=== PATIENT | female | born 1995 | race Hispanic/Latino ===

== ENCOUNTER 2018-09-12 10:24 | Emergency (ER) | payer SELFPAY ==
--- OUTSIDE RECORDS SUMMARY | 2018-09-12 10:50 | XMS REPORT ---
:1995 [facility] Address [address] [place] [address] Dr. Islas [address] [place] [id number] Care Team Providers Name Role Phone Unavailable Unavailable Unavailable Problems This patient has no known problems. Allergies, Adverse Reactions, Alerts This patient has no known allergies or adverse reactions. Medications This patient has no known medications.
[2018-09-12 11:38] LABS: Absolute Lymphocytes (CBC) 2.3 K/uL (0.7-4.9); Absolute Monocytes 0.4 K/uL (0.1-1.3); Absolute Neutrophil 6.1 K/uL (1.8-8.0); Basophils % 0.4 % (0-1.3); Eosinophils % 0.6 % (0-4.4); Lymphocytes % 26.1 % (15.3-44.8); MPV 8.5 fL (7.6-11.3); Monocytes % 4.1 % (3.3-12.3); RBC Red Blood Cell Count 4.26 M/uL (3.86-4.86)
[2018-09-12 12:12] LABS: BUN Blood Urea Nitrogen 8 mg/dL (7-18); Bicarbonate 27 mmol/L (21-32); Glucose Level 83 mg/dL (74-106); HCG, Quantitative 8947 mIU/mL (1-3); Sodium Level 141 mmol/L (136-145)
[2018-09-12 12:18] LABS: Urine Blood 2+ (NEG); Urine Glucose NEGATIVE (NEG); Urine Protein NEGATIVE (NEG)
--- NOTE | 2018-09-12 13:06 | RAD REPORT ---
EXAM DESCRIPTION: US - Transvaginal OB - 09/12/2018 12:56 pm CLINICAL HISTORY: Abd cramping, ;Vaginal bleeding COMPARISON: No comparisons FINDINGS: A single gestational sac is seen within the uterus. The gestational sac is located slightl y inferior to the fundal region of the endometrium. The shape of the sac is somewhat oblong. No yolk sac or embryo detected. Mean sac diameter is 12 mm corresponding to 5 weeks 6 days gestational age. The maternal adnexa and ovaries are within normal limits. Normal Doppler blood flow was demonstrated to both ovaries. IMPRESSION: [place] shaped gestational sac is seen within the endometrium, somewhat inferior to the f undal region. No yolk sac or pole is seen. Blighted ovum or early IUP remain possibilities. Ect opic is also not completely excluded although felt to be less likely. Advise followup seria l HCG levels and follow-up transvaginal ultrasound 7-10 days.
--- NOTE | 2018-09-12 13:10 | EDPHYS ---
Physician Documentation [facility] Name: Danii Rivera Age: 22 yrs Sex: Female : 1995 Arrival Date: 09/12/2018 Time: 10:27 Bed 23 Private MD: ED Physician Fran Simmons HPI: 09/12 12:22 This 22 yrs old Female presents to ER via Ambulatory with complaints of 8 wks kb , Back Pain. 12:22 The patient presents to the emergency department with vaginal bleeding, that is light, kb low back pain. The estimated gestational age is 8 weeks. course: care: none, Leakage of Fluid: none appreciated, Ultrasound: the patient has not had an ultrasound, Risk/complications: no obvious risks or complications are appreciated. Previous pregnancies: in previous pregnancies patient has had. Associated signs and symptoms: Pertinent positives: vaginal bleeding, Pertinent negatives: abdominal pain, chest pain, diarrhea, dysuria, fever, frequency, nausea, ruptured membranes, seizure, shortness of breath, vaginal discharge, vomiting. The patient has not experienced similar symptoms in the past. The patient has not recently seen a physician. 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 - Social history:: Smoking status: Patient/guardian denies using tobacco. - Ebola Screening: : No symptoms or risks identified at this time. ROS: 12:17 Constitutional: Negative for fever, chills, and weight loss, Cardiovascular: Negative kb for chest pain, palpitations, and edema, Respiratory: Negative for shortness of breath, cough, wheezing, and pleuritic chest pain, Abdomen/GI: Negative for abdominal pain, nausea, vomiting, diarrhea, and constipation, Skin: Negative for injury, rash, and discoloration, Neuro: Negative for headache, weakness, numbness, tingling, and seizure. 12:17 Back: Positive for pain at rest, pain with movement, of the low back area. 12:17 : Positive for vaginal bleeding. Exam: 12:17 Constitutional: This is a well developed, well nourished patient who is awake, alert, kb and in no acute distress. Head/Face: Normocephalic, atraumatic. Neck: Trachea midline, no thyromegaly or masses palpated, and no cervical lymphadenopathy. Supple, full range of motion without nuchal rigidity, or vertebral point tenderness. No Meningismus. Chest/axilla: Normal chest wall appearance and motion. Nontender with no deformity. No lesions are appreciated. Cardiovascular: Regular rate and rhythm with a normal S1 and S2. No gallops, murmurs, or rubs. Normal PMI, no JVD. No pulse deficits. Respiratory: Lungs have equal breath sounds bilaterally, clear to auscultation and percussion. No rales, rhonchi or wheezes noted. No increased work of breathing, no retractions or nasal flaring. Abdomen/GI: Soft, non-tender, with normal bowel sounds. No distension or tympany. No guarding or rebound. No evidence of tenderness throughout. Back: No spinal tenderness. No costovertebral tenderness. Full range of motion. Skin: Warm, dry with normal turgor. Normal color with no rashes, no lesions, and no evidence of cellulitis. MS/ Extremity: Pulses equal, no cyanosis. Neurovascular intact. Full, normal range of motion. Neuro: Awake and alert, GCS 15, oriented to person, place, time, and situation. Cranial nerves II-XII grossly intact. Motor strength 5/5 in all extremities. Sensory grossly intact. Cerebellar exam normal. Normal gait. Vital Signs: 10:55 Weight 53.07 kg (R); Height 4 ft. 11 in. (149.86 cm) (R); Pain 4/10; aa5 11:15 BP 104 / 60; Pulse 70; Resp 15; Temp 98.2(O); Pulse Ox 100% on R/A; Pain 4/10; ss 10:55 Body Mass Index 23.63 (53.07 kg, 149.86 cm) aa5 MDM: 10:42 Patient medically screened. kb 12:17 Data reviewed: vital signs, nurses notes. Data interpreted: Pulse oximetry: on room air kb is 100 %. Interpretation: normal. 13:09 Counseling: I had a detailed discussion with the patient and/or guardian regarding: the kb historical points, exam findings, and any diagnostic results supporting the discharge/admit diagnosis, lab results, radiology results, the need for outpatient follow up, an OB/Gyne specialist, to return to the emergency department if symptoms worsen or persist or if there are any questions or concerns that arise at home. 09/12 10:50 Order name: Quantitative Hcg; Complete Time: 12:14 kb 09/12 10:50 Order name: Abo/rh Typing; Complete Time: 11:50 kb 09/12 10:50 Order name: Basic Metabolic Panel; Complete Time: 12:14 kb 09/12 10:50 Order name: CBC with Diff; Complete Time: 11:42 kb 09/12 10:55 Order name: Urine Dipstick--Ancillary (enter results) bd 09/12 10:55 Order name: Urine --Ancillary (enter results) bd 09/12 10:29 Order name: Urine Dipstick-Ancillary (obtain specimen); Complete Time: 11:06 kb 09/12 10:29 Order name: Urine Test (obtain specimen); Complete Time: 11:06 kb 09/12 10:50 Order name: IV Saline Lock; Complete Time: 11:06 kb 09/12 10:50 Order name: Labs collected and sent; Complete Time: 11:14 kb 09/12 10:50 Order name: NPO; Complete Time: 11:06 kb 09/12 12:14 Order name: US Transvaginal Ob; Complete Time: 13:09 kb 09/12 12:19 Order name: ABO/RH no charge; Complete Time: 13:14 EDMS Administered Medications: No medications were administered Disposition: 13:56 Co-signature as Attending Physician, Fran Simmons MD. rn Disposition: 09/12/18 13:10 Discharged to Home. Impression: Threatened , Less than 8 weeks gestation of . - Condition is Stable. - Discharge Instructions: First Trimester of , [id number], Threatened Miscarriage, [id number]. - Medication Reconciliation Form, Thank You Letter, Antibiotic Education, Prescription Opioid Use form. - Follow up: Emergency Department; When: As needed; Reason: Worsening of condition. Follow up: Private Physician; When: 2 - 3 days; Reason: Recheck today's complaints, Continuance of care, Re-evaluation by your physician. Signatures: Dispatcher [employer] EDTori Snyder, PHYSICAL THERAPIST CLINIC DIRECTOR-C PHYSICAL THERAPIST CLINIC DIRECTOR-Ckb Fran Simmons MD MD rn Calderon, Audri RN RN aa5 Corrections: (The following items were deleted from the chart) 13:38 13:10 09/12/2018 13:10 Discharged to Home. Impression: Threatened ; Less than 8 aa5 weeks gestation of . Condition is Stable. Forms are Medication Reconciliation Form, Thank You Letter, Antibiotic Education, Prescription Opioid Use. Follow up: Emergency Department; When: As needed; Reason: Worsening of condition. Follow up: Private Physician; When: 2 - 3 days; Reason: Recheck today's complaints, Continuance of care, Re-evaluation by your physician. kb
--- NOTE | 2018-09-12 13:10 | ER ---
Nurse's Notes [facility] Name: Danii Rivera Age: 22 yrs Sex: Female : 1995 Arrival Date: 09/12/2018 Time: 10:27 Bed 23 Private MD: Diagnosis: Threatened ;Less than 8 weeks gestation of Presentation: 09/12 10:43 Presenting complaint: Patient states: this is my 3rd , I started having hj vaginal bleeding and low back pain yesterday; LMP- July 13, 2018. Pt reports being 8 weeks . Transition of care: patient was not received from another setting of care. Onset of symptoms was September 12, 2018. Risk Assessment: Do you want to hurt yourself or someone else? Patient reports no desire to harm self or others. Initial Sepsis Screen: Does the patient meet any 2 criteria? No. Patient's initial sepsis screen is negative. Does the patient have a suspected source of infection? No. Patient's initial sepsis screen is negative. Care prior to arrival: None. 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 - Social history:: Smoking status: Patient/guardian denies using tobacco. - Ebola Screening: : No symptoms or risks identified at this time. Screenin:15 Abuse screen: Denies threats or abuse. Denies injuries from another. Nutritional ss screening: No deficits noted. Tuberculosis screening: Never had TB. Fall Risk None identified. Assessment: 11:15 General: Appears in no apparent distress. comfortable, Behavior is calm, cooperative, ss Denies fever, feeling ill, fatigue, chills. Pain: Complains of pain in suprapubic area Pain currently is 4 out of 10 on a pain scale. Quality of pain is described as crampy, Pain began "yesterday" Is intermittent. Neuro: Level of Consciousness is awake, alert, obeys commands, Oriented to person, place, time, situation, Speech is normal, Pupils are PERRLA. Cardiovascular: Capillary refill < 3 seconds is brisk in bilateral fingers Chest pain is denied. Respiratory: Airway is patent Respiratory effort is even, unlabored. GI: Abdomen is non-distended, Patient currently denies diarrhea, vomiting. : Reports vaginal bleeding that is moderate flow, since yesterday pt reports that as if flow was a normal menstrual cycle for her. EENT: Nares are clear Oral mucosa is moist. Derm: Skin is intact, is healthy with good turgor, Skin is dry, Skin is pink, warm \\T\\ dry. normal. Musculoskeletal: Range of motion: intact in all extremities, Swelling absent. 13:35 Reassessment: Patient is alert, oriented x 3, equal unlabored respirations, skin aa5 warm/dry/pink. Vital Signs: 10:55 Weight 53.07 kg (R); Height 4 ft. 11 in. (149.86 cm) (R); Pain 4/10; aa5 11:15 BP 104 / 60; Pulse 70; Resp 15; Temp 98.2(O); Pulse Ox 100% on R/A; Pain 4/10; ss 10:55 Body Mass Index 23.63 (53.07 kg, 149.86 cm) aa5 ED Course: 10:27 Patient arrived in ED. mr 10:28 Alfonso Tori, IMAGE SCIENTIST-C [facility] kb 10:28 Fran Simmons MD is Attending Physician. kb 10:43 Arm band placed on Patient placed in an exam room, on a stretcher. aa5 10:45 Triage completed. hj 11:14 Frances Mckinney, RN is Primary Nurse. ss 11:15 Patient has correct armband on for positive identification. Bed in low position. Call ss light in reach. Pulse ox on. NIBP on. 11:15 Inserted saline lock: 22 gauge in right antecubital area, using aseptic technique. ss Blood collected. 12:56 US Transvaginal Ob In Process Unspecified. EDMS 13:35 No provider procedures requiring assistance completed. IV discontinued, intact, aa5 bleeding controlled, No redness/swelling at site. Pressure dressing applied. Administered Medications: No medications were administered Outcome: 13:10 Discharge ordered by . kb 13:35 Discharged to home ambulatory, with significant other. aa5 13:35 Condition: stable 13:35 Discharge instructions given to patient, Instructed on discharge instructions, follow up and referral plans. Demonstrated understanding of instructions, follow-up care, Pt reports she has a follow-up appointment with [facility] tomorrow. 13:38 Patient left the ED. aa5 Signatures: Dispatcher [employer] EDMS Tori Hamilton, CHIARA-Rodo IMAGE SCIENTIST-Haley Collier Anish, Sandra, RN RN aa5 Frances Mckinney, IRMA RN Dioni Sheldon RN RN hj Corrections: (The following items were deleted from the chart) 11:02 10:43 Presenting complaint: Patient states: this is my 3rd , i started having aa5 vaginal bleeding and low back pain; LMP- hj
== END 2018-09-12 13:38 | disposition home or self-care (01) ==
LOC: ER 10:24
DX: O20.0 Threatened abortion (principal); Z3A.08 8 weeks gestation of pregnancy
CPT/HCPCS: 36415; 76817; 80048; 81003; 81025; 84702; 85025; 86900; 86901; 99284